=== PATIENT | male | born 1965 | race Caucasian/White ===

== ENCOUNTER 2022-04-27 13:42 | Emergency (ER) | payer BC ==
[~2022-04-27] VITALS: Ht 172.7 cm; Wt 87.1 kg
--- NOTE | 2022-04-27 13:58 | NUR ---
BIBRA 58 C/O L KNEE AND L SHOULDER PAIN S/P FALLING, PT STATED HIS LEG FELL ASLEEP AND THOUGHT "IT WOKE UP" AND STARTED TO WALK AND FELL -KO -BT. PT IS A&OX4. VITALS ARE WITHIN NORMAL LIMITS, NO RESP DISTRESS NOTED. PAIN IS 10/10 ON PAIN SCALE. AWAITING MD KHAN.
[2022-04-27] MEDS ORDERED: MORPHINE SULFATE INJ 4 MG/ML DISP.SYRIN ONE (15:28)
[2022-04-27] MEDS: MORPHINE SULFATE INJ 2 MG/ML DISP.SYRIN IV ONE ×2 (15:36→15:37)
--- NOTE | 2022-04-27 15:37 | NUR ---
SUDHA ESTABLISHED R DION 20G.
[2022-04-27] MEDS ORDERED: PROPOFOL 20 ML IV ONE (16:29)
[2022-04-27] MEDS: IV NS 0.9% 1,000 ML IV ONE (17:30)
--- NOTE | 2022-04-27 17:30 | NUR ---
DR DANIELS AT BEDSIDE FOR CONSCIOUS SEDATION 60MG OF PROPOFOL GIVEN, SHOULDER POPPED BACK IN AT 1731, X RAY WAS CALLED. PT BECASE A&OX4 AT 1736.
--- NOTE | 2022-04-27 17:44 | NUR ---
ORTHO PAGED AGAIN, AWAITING CALL BACK FROM DR. WALTERS.
[2022-04-27] MEDS ORDERED: HYDR-4303 PO (19:03)
--- NOTE | 2022-04-27 19:16 | NUR ---
Patient discharged to home in stable condition. Written and verbal after care instructions given. Patient verbalizes understanding of instruction. IV removed. Catheter intact and site benign. Pressure and 4x4 applied to site. No bleeding noted.
[2022-04-27 19:17] VITALS: BP 130/75
--- NOTE | 2022-04-28 14:48 | NUR ---
PT CALLED REQUESTING NEW PHARMACY BE [facility] IN [place]. [address] [facility]. [facility] [id number]
== END 2022-04-27 19:17 | disposition home or self-care (01) ==
LOC: ER 14:03
DX: S43.015A Anterior dislocation of left humerus, initial encounter (principal); S82.102A Unspecified fracture of upper end of left tibia, initial encounter for closed fracture; W10.9XXA Fall (on) (from) unspecified stairs and steps, initial encounter; Y92.89 Other specified places as the place of occurrence of the external cause; I10 Essential (primary) hypertension; Z20.822 Contact with and (suspected) exposure to COVID-19
CPT/HCPCS: 99285; 23650; 96374; 73700; 71045; 29505; 87426; 99152; 73060; 73564; 73030; 73590; 73020; J2704; J2270; J7030; C9803; G0500